=== PATIENT | female | born 1945 | race Caucasian/White ===

== ENCOUNTER → 2018-08-25 | Emergency (ER) | payer MEDICARE ==
[~2018-08-25] VITALS: Ht 162.6 cm; Wt 58.1 kg
[~2018-08-25] MED LIST: ADULT LOW DOSE81 MG; ASACOL400 MG PO; BENAZEPRIL HCT PO; CEFDINIR300 MG PO; DOXYCYCLINE MO100 MG PO; FLORASTOR250 MG PO; IOPAMIDOL 370 MG/ML 200 ML INFUS..BTL INJ ONE; MACROBID 100 M100 MG PO; MORPHINE SULFATE 2 MG/ML SYR 1ML IV STA; MORPHINE SULFATE INJ 4 MG/ML INJ 1ML ONE; MULTI-VITAMIN1 EACH PO; ONDANSETRON HCL INJ 2MG/ML 2ML 2 MG/ML VIAL IV STA; ONDANSETRON HCL INJ 2MG/ML 2ML 2 MG/ML VIAL ONE; PRAVASTATIN SOD20 MG PO; PREDNISONE10 MG PO; SIMVASTATIN20 MG PO; SODIUM CHLORIDE 0.9% 100 ML 100 ML ONE; SODIUM CHLORIDE 0.9% 1000ML 1,000 ML IV STA; Z POTASSIUM CHLOR PO; Z.0.AMIODARONE HCL20 PO; Z.0.ASACOL400 MG PO; Z.0.ASPIRIN325 MG PO; Z.0.AVAPRO300 MG PO; Z.0.BYSTOLIC10 MG PO; Z.0.CRESTOR10 MG PO; Z.0.DICYCLOMINE HCL1 PO; Z.0.HYDROCHLOROTHIA2 PO; Z.0.LEVOTHYROXINE25 PO; Z.0.METOPROLOL TART5 PO; Z.0.NORVASC5 MG PO; Z.0.PLAVIX75 MG PO; Z.0.SIMVASTATIN10 MG PO
--- NOTE | 2018-08-25 20:23 | Diagnostic Imaging Report ---
Examination: Single AP view of the chest. COMPARISON: None. INDICATION: Chest pain DISCUSSION: Lines/tubes: None. Lungs: The lungs are well inflated and clear. No pneumonia or pulmonary edema. Pleura: There is no pleural effusion or pneumothorax. Heart and mediastinum: The heart and the mediastinum are unremarkable. Bones and soft tissues: No acute bony abnormalities. IMPRESSION: 1. No acute cardiopulmonary abnormalities. Signed by: Dr. Koko Solares M.D. on 08/25/2018 8:19 PM
[2018-08-25 20:44] LABS: BILIRUBIN,URINE NEGATIVE (NEGATIVE); CLARITY,URINE CLEAR (CLEAR); COLOR,URINE YELLOW (YELLOW); KETONES,URINE NEGATIVE (NEGATIVE); LEUKOCYTE ESTERASE ,URINE TRACE (NEGATIVE); NITRITE,URINE NEGATIVE (NEGATIVE); PROTEIN,URINE DIPSTICK NEGATIVE (NEGATIVE); URINE UROBILINOGEN 0.2 mg/dL (0.2 - 1)
[2018-08-25 20:49] LABS: BASOPHILS # (AUTO) 0.1 (0.0-0.1); BASOPHILS % 0.5 % (0.0-1.0); EOSINOPHILS # (AUTO) 0.2 (0.0-0.4); HEMATOCRIT 37.7 % (34.2-44.1); HEMOGLOBIN 12.7 g/dL (12.0-16.0); LYMPHOCYTES % 10.9 % (18.0-39.1); MEAN CORPUSCULAR HEMOGLOBIN 31.4 pg (28-32); MEAN CORPUSCULAR HGB CONC 33.7 g/dL (31-35); MEAN CORPUSCULAR VOLUME 93.1 fL (81-99); MONOCYTES # (AUTO) 0.5 (0.2-0.8); MONOCYTES % 5.1 % (4.4-11.3); NEUTROPHILS # (AUTO) 7.6 (2.1-6.9); NEUTROPHILS % 81.1 % (38.7-80.0); PLATELET COUNT 238 x10e3/uL (140-360); RED BLOOD COUNT 4.05 x10e6/uL (3.6-5.1); RED CELL DISTRIBUTION WIDTH 13.1 % (11.7-14.4)
[2018-08-25 21:11] LABS: ALANINE AMINOTRANSFERASE 16 IU/L (0-55); ALBUMIN 3.9 g/dL (3.5-5.0); ALBUMIN/GLOBULIN RATIO 1.3 (0.8-2.0); ALKALINE PHOSPHATASE 72 IU/L (40-150); AMYLASE 88 U/L (25-125); ANION GAP 17.4 mmol/L (8-16); BLOOD UREA NITROGEN 20 mg/dL (7-26); BUN/CREATININE RATIO 19 (6-25); CALCIUM 10.2 mg/dL (8.4-10.2); CARBON DIOXIDE 24 mmol/L (22-29); CHLORIDE 111 mmol/L (98-107); CREATINE KINASE 304 IU/L (29-168); CREATININE, SERUM 1.04 mg/dL (0.57-1.11); EST GLOMERULAR FILTRATION RATE 52 ML/MIN (60-); GLUCOSE 111 mg/dL (74-118); LIPASE 63 U/L (8-78); POTASSIUM 4.4 mmol/L (3.5-5.1); SODIUM 148 mmol/L (136-145)
[2018-08-25 21:12] LABS: BACTERIA,URINE RARE /HPF; EPITHELIAL CELLS,URINE RARE /LPF; RBC,URINE 0-5 /HPF (0-5)
--- NOTE | 2018-08-25 23:08 | Diagnostic Imaging Report ---
EXAMINATION: CT angiogram of the chest, abdomen and pelvis with contrast. TECHNIQUE: Helical CT angiogram images of the chest, abdomen and pelvis were performed from the lung apices to the lesser trochanters after the intravenous administration of 150 cc of Isovue 300 and the oral administration of none. Coronal and sagittal reformatted images were obtained. COMPARISON: None. CLINICAL HISTORY:Upper back pain DISCUSSION: CHEST: LINES/TUBES: None. LUNGS AND AIRWAYS: Emphysematous change. Scarring in the lung bases PLEURA: The pleural spaces are clear. HEART AND MEDIASTINUM: The thyroid gland is normal. Aortic and coronary artery calcifications. No dissection or aneurysm. LYMPH NODES: No significant mediastinal, hilar or axillary lymphadenopathy is seen. BONES AND SOFT TISSUES: No bony destructive lesions. No soft tissue abnormalities. ABDOMEN/PELVIS: HEPATOBILIARY:No focal hepatic lesions. No biliary ductal dilation. The gallbladder is normal. SPLEEN: No splenomegaly. PANCREAS: No focal mass. Calcifications related to chronic pancreatitis. Pancreatic duct is prominent. ADRENALS: No adrenal nodules. KIDNEYS/URETERS: Bilateral renal cysts, largest right measuring 2.6 cm. PELVIC ORGANS/BLADDER: Bladder is normal. Hysterectomy. PERITONEUM/RETROPERITONEUM: No free air or fluid. LYMPH NODES: No intra-abdominal,retroperitoneal, pelvic or inguinal lymphadenopathy. VESSELS: Vascular calcifications. No dissection or aneurysm. GI TRACT: Post surgical change to the small bowel. No obstruction. Extensive sigmoid diverticulosis BONES AND SOFT TISSUES: No bony destructive lesions. No soft tissue abnormalities. IMPRESSION: Aortic and coronary artery calcifications. No aneurysm or dissection. Colonic diverticulosis. Signed by: Dr. Koko Solares M.D. on 08/25/2018 11:04 PM
[2018-08-25 23:33] VITALS: BP 139/75
== END | disposition home or self-care (01) ==
LOC: ER 19:37
DX: R10.10 Upper abdominal pain, unspecified (principal); N30.90 Cystitis, unspecified without hematuria; K57.30 Diverticulosis of large intestine without perforation or abscess without bleeding
CPT/HCPCS: 36415; 71045; 71275; 74174; 80053; 81001; 82150; 82550; 82553; 83690; 84484; 85025; 93005; 96374; 99284; J2270 ×2; J2405; J7030

== ENCOUNTER 2018-09-03 14:31 | Emergency (ER) | payer MEDICARE ==
[~2018-09-03] VITALS: Ht 160 cm; Wt 55.3 kg
[~2018-09-03 14:31] MED LIST changes: -CEFDINIR300 MG PO; -DOXYCYCLINE MO100 MG PO; -IOPAMIDOL 370 MG/ML 200 ML INFUS..BTL INJ ONE; -MORPHINE SULFATE 2 MG/ML SYR 1ML IV STA; -MORPHINE SULFATE INJ 4 MG/ML INJ 1ML ONE; -MULTI-VITAMIN1 EACH PO; -ONDANSETRON HCL INJ 2MG/ML 2ML 2 MG/ML VIAL IV STA; -ONDANSETRON HCL INJ 2MG/ML 2ML 2 MG/ML VIAL ONE; -PREDNISONE10 MG PO; -SODIUM CHLORIDE 0.9% 100 ML 100 ML ONE; -SODIUM CHLORIDE 0.9% 1000ML 1,000 ML IV STA
--- OUTSIDE RECORDS SUMMARY | 2018-09-03 14:37 | XMS REPORT ---
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 Allergies, Adverse Reactions, Alerts This patient has no known allergies or adverse reactions. Medications This patient has no known medications. Results Test Description Test Time Test Comments Text Results Atomic Results Result Comments CTA ABD/PELVIS 2018-08-25 22:55:00 [place] [address] Patient Name: CHUN GUTIERREZ MR #: [id number] : 1945 Age/Sex: 72/F Req #: [id number] [facility] Physician: Ordered by: TRAVIS FARRELL MD Report #: [id number] Location: ER Room/Bed: Procedure: [id number] CT/CTA ABD/PELVIS Exam Date: 08/25/18 Exam Time: 2206 REPORT STATUS: Signed EXAMINATION: CT angiogram of the chest, abdomen and pelvis with contrast. TECHNIQUE: Helical CT angiogram images of the chest, abdomen and pelvis were performed from the lung apices to the lesser trochanters after the intravenous administration of 150 cc of Isovue 300 and the oral administration of none. Coronal and sagittal reformatted images were obtained. COMPARISON: None. CLINICAL HISTORY:Upper back pain DISCUSSION: CHEST: LINES/TUBES: None. LUNGS AND AIRWAYS: Emphysematous change. Scarring in the lung bases PLEURA: The pleural spaces are clear. HEART AND MEDIASTINUM: The thyroid gland is normal. Aortic and coronary artery calcifications. No dissection or aneurysm. LYMPH NODES: No significant mediastinal, hilar or axillary lymphadenopathy is seen. BONES AND SOFT TISSUES: No bony destructive lesions. No soft tissue abnormalities. ABDOMEN/PELVIS: HEPATOBILIARY:No focal hepatic lesions. No biliary ductal dilation. The gallbladder is normal. SPLEEN: No splenomegaly. PANCREAS: No focal mass. Calcifications related to chronic pancreatitis. Pancreatic duct is prominent. ADRENALS: No adrenal nodules. KIDNEYS/URETERS: Bilateral renal cysts, largest right measuring 2.6 cm. PELVIC ORGANS/BLADDER: Bladder is normal. Hysterectomy. PERITONEUM/RETROPERITONEUM: No free air or fluid. LYMPH NODES: No intra-abdominal,retroperitoneal, pelvic or inguinal lymphadenopathy. VESSELS: Vascular calcifications. No dissection or aneurysm. GI TRACT: Post surgical change to the small bowel. No obstruction. Extensive sigmoid diverticulosis BONES AND SOFT TISSUES: No bony destructive lesions. No soft tissue abnormalities. IMPRESSION: Aortic and coronary artery calcifications. No aneurysm or dissection. Colonic diverticulosis. Signed by: Dr. Vin Chowdhury M.D. on 08/25/2018 11:04 PM Dictated By: VIN CHOWDHURY MD 03 Transcribed By: ALEXY on 08/25/182303 COPY TO: TRAVIS FARRELL MD CTA CHEST 2018-08-25 22:55:00 [place] [address] Patient Name: CHUN GUTIERREZ MR #: [id number] : 1945 Age/Sex: 72/F Req #: [id number] Physician: Ordered by: TRAVIS FARRELL MD Report #: [id number] Location: ER Room/Bed: Procedure: [id number] CT/CTA CHEST Exam Date: 08/25/18 Exam Time: 2206 REPORT STATUS: Signed EXAMINATION: CT angiogram of the chest, abdomen and pelvis with contrast. TECHNIQUE: Helical CT angiogram images of the chest, abdomen and pelvis were performed from the lung apices to the lesser trochanters after the intravenous administration of 150 cc of Isovue 300 and the oral administration of none. Coronal and sagittal reformatted images were obtained. COMPARISON: None. CLINICAL HISTORY:Upper back pain DISCUSSION: CHEST: LINES/TUBES: None. LUNGS AND AIRWAYS: Emphysematous change. Scarring in the lung bases PLEURA: The pleural spaces are clear. HEART AND MEDIASTINUM: The thyroid gland is normal. Aortic and coronary artery calcifications. No dissection or aneurysm. LYMPH NODES: No significant mediastinal, hilar or axillary lymphadenopathy is seen. BONES AND SOFT TISSUES: No bony destructive lesions. No soft tissue abnormalities. ABDOMEN/PELVIS: HEPATOBILIARY:No focal hepatic lesions. No biliary ductal dilation. The gallbladder is normal. SPLEEN: No splenomegaly. PANCREAS: No focal mass. Calcifications related to chronic pancreatitis. Pancreatic duct is prominent. ADRENALS: No adrenal nodules. KIDNEYS/URETERS: Bilateral renal cysts, largest right measuring 2.6 cm. PELVIC ORGANS/BLADDER: Bladder is normal. Hysterectomy. PERITONEUM/RETROPERITONEUM: No free air or fluid. LYMPH NODES: No intra-abdominal,retroperitoneal, pelvic or inguinal lymphadenopathy. VESSELS: Vascular calcifications. No dissection or aneurysm. GI TRACT: Post surgical change to the small bowel. No obstruction. Extensive sigmoid div erticulosis BONES AND SOFT TISSUES: No bony destructive lesions. No soft tissue abnormalities. IMPRESSION: Aortic and coronary artery calcifications. No aneurysm or dissection. Colonic diverticulosis. Signed by: Dr. Vin Chowdhury M.D. on 08/25/2018 11:04 PM Dictated By: VIN CHOWDHURY MD 03 Transcribed By: ALEXY on 08/25/182303 COPY TO: TRAVIS FARRELL MD CHEST SINGLE (PORTABLE) 2018-08-25 20:18:00 [place] [address] Patient Name: CHUN GUTIERREZ MR #: [id number] : 1945 Age/Sex: 72/F Req #: [id number] [facility] Physician: Ordered by: TRAVIS FARRELL MD Report #: [id number] Location: ER Room/Bed: Procedure: [id number] DX/CHEST SINGLE (PORTABLE) Exam Date: 08/25/18 Exam Time: 2009 REPORT STATUS: Signed Examination: Single AP view of the chest. C OMPARISON: None. INDICATION: Chest pain DISCUSSION: Lines/tubes: None. Lungs: The lungs are well inflated and clear. No pneumonia or pulmonary edema. Pleura: There is no pleural effusion or pneumothorax. Heart and mediastinum: The heart and the mediastinum are unremarkable. Bones and soft tissues: No acute bony abnormalities. IMPRESSION: 1. No acute cardiopulmonary abnormalities. Signed by: Dr. Vin Chowdhury M.D. on 08/25/2018 8:19 PM Dictated By: VIN CHOWDHURY MD 18 Transcribed By: ALEXY on 08/25/182018 COPY TO: TRAVIS FARRELL MD
[2018-09-03] MEDS ORDERED: KETOROLAC TROMETHAMINE 30 MG/ML VIAL IV STA (15:03)
[2018-09-03] MEDS ORDERED: ONDANSETRON HCL INJ 2MG/ML 2ML 2 MG/ML VIAL IV STA (15:03)
[2018-09-03] MEDS ORDERED: SODIUM CHLORIDE 0.9% 1000ML 1,000 ML IV SCH (15:15)
[2018-09-03] MEDS ORDERED: SODIUM CHLORIDE 0.9% 50ML 50 ML ONE (15:20)
[2018-09-03] MEDS ORDERED: IOPAMIDOL 370 MG/ML 200 ML INFUS..BTL INJ ONE (15:21)
[2018-09-03] MEDS ORDERED: KETOROLAC TROMETHAMINE 30 MG/ML VIAL ONE (16:19)
[2018-09-03] MEDS ORDERED: ONDANSETRON HCL INJ 2MG/ML 2ML 2 MG/ML VIAL ONE (16:19)
[2018-09-03] MEDS ORDERED: SODIUM CHLORIDE 0.9% 1000ML 1,000 ML ONE (16:19)
--- NOTE | 2018-09-03 16:23 | Diagnostic Imaging Report ---
EXAM: CT Abdomen and Pelvis WITH intravenous contrast INDICATION: Nausea, vomiting, fever COMPARISON: CT chest abdomen and pelvis of 08/25/2018 TECHNIQUE: Abdomen and pelvis were scanned utilizing a multidetector helical scanner from the lung base to the pubic symphysis after administration of IV contrast. Coronal and sagittal reformations were obtained. Routine protocol was performed. Scan was performed when during portal venous phase. IV CONTRAST: 100 mL of Isovue-370 ORAL CONTRAST: Water COMPLICATIONS: None RADIATION DOSE: Total DLP: 423.17 mGy*cm Dose modulation, iterative reconstruction, and/or weight based adjustment of the mA/kV was utilized to reduce the radiation dose to as low as reasonably achievable. FINDINGS: LOWER THORAX: Minimal bibasilar dependent segmental atelectasis. No focal consolidation. Atherosclerotic calcifications of the coronary arteries. HEPATOBILIARY: No focal hepatic lesions. No biliary ductal dilatation. The gallbladder appears unremarkable. SPLEEN: No splenomegaly. PANCREAS: No focal masses or ductal dilatation. ADRENALS: No adrenal nodules. KIDNEYS/URETERS: No hydronephrosis, stones, or solid mass lesions. Bilateral renal cysts, measuring up to 2.7 cm on the right and 1.6 cm on the left. PELVIC ORGANS/BLADDER: Bladder is decompressed. There is a 6.8 x 3.7 cm predominantly cystic left adnexal mass. PERITONEUM / RETROPERITONEUM: No free air or fluid. LYMPH NODES: No lymphadenopathy. VESSELS: Atherosclerotic calcifications of the abdominal aorta and major branches. GI TRACT: Extensive colonic diverticulosis without CT evidence of diverticulitis. No abnormal bowel wall thickening or bowel distention. No evidence of obstruction. Prior enteric anastomosis in the right lower quadrant. Appendix appears unremarkable. BONES AND SOFT TISSUES: Degenerative changes of the visualized spine. No suspicious lytic or blastic lesions. IMPRESSION: Extensive colonic diverticulosis with no CT evidence of diverticulitis. Predominantly cystic 6.8 x 3.7 cm left adnexal lesion. Recommend further evaluation with ultrasound on a nonemergent basis. Signed by: Rinku Ashley MD on 09/03/2018 4:19 PM
[2018-09-03] MEDS ORDERED: MORPHINE SULFATE INJ 4 MG/ML INJ 1ML IV PRN (16:30)
[2018-09-03] MEDS ORDERED: ACETAMINOPHEN 325 MG TAB PO ONE (16:30)
[2018-09-03] MEDS ORDERED: MORPHINE SULFATE INJ 4 MG/ML INJ 1ML ONE (16:37)
[2018-09-03] MEDS ORDERED: ACETAMINOPHEN 325 MG TAB ONE (16:38)
[2018-09-03 18:20] VITALS: BP 147/62
== END 2018-09-03 18:31 | disposition home or self-care (01) ==
LOC: FSED 14:31
DX: R10.11 Right upper quadrant pain (principal); R10.12 Left upper quadrant pain; R10.13 Epigastric pain; R11.2 Nausea with vomiting, unspecified; I10 Essential (primary) hypertension; Z87.19 Personal history of other diseases of the digestive system
CPT/HCPCS: 74177; 80048; 80076; 81003; 84484; 85025; 93005; 99284; J1885; J2270; J2405; J7030; Q9967

== ENCOUNTER 2018-09-10 07:13 | Observation (INO) | payer MEDICARE ==
[~2018-09-10] VITALS: Ht 160 cm; Wt 55.8 kg
[2018-09-10] MEDS ORDERED: SODIUM CHLORIDE 0.9% 1000ML 1,000 ML IV STA (07:27)
[2018-09-10] MEDS ORDERED: METHYLPREDNISOLONE SOD SUCC 125 MG/2ML VIAL IV ONE (07:30)
[2018-09-10] MEDS ORDERED: ACETAMINOPHEN 325 MG TAB PO NR (07:30)
[2018-09-10] MEDS ORDERED: FAMOTIDINE 20 MG/2 ML VIAL IV NR (07:30)
[2018-09-10] MEDS ORDERED: PROMETHAZINE 12.5MG/ NACL 0.9% 12.5 MG/50 ML BAG IV ONE (07:30)
[2018-09-10] MEDS ORDERED: KETOROLAC TROMETHAMINE 30 MG/ML VIAL IV NR (07:30)
[2018-09-10 08:04] LABS: BILIRUBIN,URINE MODERATE (NEGATIVE); CLARITY,URINE CLOUDY (CLEAR); COLOR,URINE ORANGE (YELLOW); KETONES,URINE 1+ (NEGATIVE); LEUKOCYTE ESTERASE ,URINE TRACE (NEGATIVE); NITRITE,URINE NEGATIVE (NEGATIVE); PROTEIN,URINE DIPSTICK 1+ (NEGATIVE); URINE UROBILINOGEN 1 mg/dL (0.2 - 1)
[2018-09-10 08:19] LABS: BACTERIA,URINE MANY /HPF; EPITHELIAL CELLS,URINE MANY /LPF; RBC,URINE 0-5 /HPF (0-5)
[2018-09-10 08:20] LABS: AMORPHOUS SEDIMENT,URINE MANY (FEW)
[2018-09-10] MEDS ORDERED: LACTATED RINGER'S 1,000 ML IV SCH (08:56)
--- NOTE | 2018-09-10 08:56 | Diagnostic Imaging Report ---
EXAMINATION: ABDOMEN ACUTE SERIES W/PA CXR INDICATION: Abdominal pain COMPARISON: None FINDINGS: TUBES and LINES: None. LUNGS: The lungs appear hyperinflated. Bilateral upper lobe predominant emphysematous changes. Mild subsegmental atelectasis at both lung bases. No focal consolidation or pulmonary edema. PLEURA: No pleural effusion or pneumothorax. HEART AND MEDIASTINUM: The cardiomediastinal silhouette is normal in size and contour. Atherosclerotic calcifications of the thoracic aorta. BONES AND SOFT TISSUES: No acute fracture or dislocation. ABDOMEN and: Nonobstructive bowel gas pattern. No abnormal calcifications. No intraperitoneal free air. Degenerative changes involve the lower lumbar spine. Phleboliths in the pelvis. IMPRESSION: Nonobstructive bowel gas pattern. No free air. Hyperinflated lungs with bilateral upper lobe predominant emphysema. No focal pneumonia or pulmonary edema. Signed by: Rinku Ashley MD on 09/10/2018 8:52 AM
[2018-09-10] MEDS ORDERED: CEFTRIAXONE SOD 1 GM VIAL IV SCH (09:00)
[2018-09-10] MEDS ORDERED: ENALAPRILAT IV INJ 1.25 MG/ML VIAL IV PRN (09:00)
[2018-09-10] MEDS ORDERED: DIPHENHYDRAMINE HCL INJ 50 MG/ML VIAL IV PRN (09:00)
[2018-09-10] MEDS ORDERED: FAMOTIDINE 20 MG/2 ML VIAL IV SCH (09:00)
[2018-09-10] MEDS ORDERED: ACETAMINOPHEN 325 MG TAB PO PRN (09:00)
[2018-09-10 09:10] LABS: BASOPHILS # (AUTO) 0.1 (0.0-0.1); BASOPHILS % 0.5 % (0.0-1.0); EOSINOPHILS # (AUTO) 0.1 (0.0-0.4); EOSINOPHILS % 0.5 % (0.0-6.0); HEMATOCRIT 35.2 % (34.2-44.1); HEMOGLOBIN 11.4 g/dL (12.0-16.0); LYMPHOCYTES % 8.4 % (18.0-39.1); MEAN CORPUSCULAR HEMOGLOBIN 30.4 pg (28-32); MEAN CORPUSCULAR HGB CONC 32.4 g/dL (31-35); MEAN CORPUSCULAR VOLUME 93.9 fL (81-99); MONOCYTES # (AUTO) 1.1 (0.2-0.8); MONOCYTES % 9.6 % (4.4-11.3); NEUTROPHILS # (AUTO) 9.4 (2.1-6.9); NEUTROPHILS % 79.4 % (38.7-80.0); PLATELET COUNT 252 x10e3/uL (140-360); RED BLOOD COUNT 3.75 x10e6/uL (3.6-5.1); RED CELL DISTRIBUTION WIDTH 14.4 % (11.7-14.4)
[2018-09-10 09:15] LABS: ALANINE AMINOTRANSFERASE 26 IU/L (0-55); ALBUMIN 2.7 g/dL (3.5-5.0); ALBUMIN/GLOBULIN RATIO 0.6 (0.8-2.0); ALKALINE PHOSPHATASE 253 IU/L (40-150); AMYLASE 27 U/L (25-125); ANION GAP 19.1 mmol/L (8-16); BLOOD UREA NITROGEN 15 mg/dL (7-26); BUN/CREATININE RATIO 17 (6-25); CALCIUM 9.4 mg/dL (8.4-10.2); CARBON DIOXIDE 20 mmol/L (22-29); CHLORIDE 103 mmol/L (98-107); CREATINE KINASE 155 IU/L (29-168); EST GLOMERULAR FILTRATION RATE > 60 ML/MIN (60-); GLUCOSE 84 mg/dL (74-118); LIPASE 40 U/L (8-78); POTASSIUM 4.1 mmol/L (3.5-5.1); SODIUM 138 mmol/L (136-145)
[2018-09-10] MEDS: CEFTRIAXONE SOD 1 GM/NS 50 ML 50 ML IV SCH ×2 (09:31→20:40)
[2018-09-10] MEDS: LACTATED RINGER'S 1,000 ML IV SCH ×2 (09:31→16:55)
[2018-09-10 11:22] VITALS: BP 115/59
[2018-09-10] MEDS: ONDANSETRON HCL INJ 2MG/ML 2ML 2 MG/ML VIAL IV PRN (11:44)
[2018-09-10] MEDS: MORPHINE SULFATE INJ 4 MG/ML INJ 1ML IV PRN ×2 (11:44→20:54)
[2018-09-10 12:06] VITALS: BP 115/59
[2018-09-10 12:19] VITALS: BP 115/59
[2018-09-10] MEDS ORDERED: MULTI-VITAMIN1 EACH PO (12:32)
--- NOTE | 2018-09-10 14:05 | NUR ---
Visit made by the Spiritual Care Department Pastoral Visitor, Karen Casas. PV provided pastoral presence, prayer, hospitality, and supportive listening. Pastoral Visitor informed pt/family of the scope of Local [employer] Legislator Services and availability. [place] [employer] Spiritual Care Department O: [phone] Pager: [phone] ([phone] number calling from)
[2018-09-10 15:35] VITALS: BP 106/59
--- NOTE | 2018-09-10 16:25 | Diagnostic Imaging Report ---
Exam: Pelvic ultrasound. History: Left ovarian cyst Comparison: CT abdomen pelvis of 09/03/2018 Findings: Transabdominal sonographic evaluation of the pelvis. Status post hysterectomy. The right ovary was not well visualized. The left ovary measured 3.0 x 2.8 x 2.3 cm. There is a 3.2 x 2.3 x 2.3 cm anechoic cyst associated with the left ovary without associated vascularity. Impression: 3.2 x 2.3 x 2.3 cm anechoic cyst associated with the left ovary. Cyst appears smaller compared to a CT of 08/25/2018 and is just almost certainly benign. Follow-up evaluation with ultrasound in one to 2 years is recommended to document stability. Signed by: Rinku Ashley MD on 09/10/2018 4:21 PM
[2018-09-10] MEDS: DOXYCYCLINE 100MG/NS 100ML 100 ML IV SCH (16:54)
[2018-09-10] MEDS: METHYLPREDNISOLONE SOD SUCC 125 MG/2ML VIAL IV SCH ×2 (16:55→22:47)
[2018-09-10] MEDS: FAMOTIDINE 20 MG TAB PO SCH (16:55)
[2018-09-10 19:20] VITALS: BP 104/56
[2018-09-10] MEDS ORDERED: ZOLPIDEM TARTRATE 5 MG TAB PO PRN (21:00)
[2018-09-10 23:40] VITALS: BP 104/56
[2018-09-11] VITALS (8 sets, daily range): BP systolic 126–150; BP diastolic 66–78
[2018-09-11] MEDS: LACTATED RINGER'S 1,000 ML IV SCH (01:55)
[2018-09-11] MEDS: DOXYCYCLINE 100MG/NS 100ML 100 ML IV SCH ×2 (03:51→15:57)
[2018-09-11] MEDS: METHYLPREDNISOLONE SOD SUCC 125 MG/2ML VIAL IV SCH ×3 (05:39→21:05)
[2018-09-11 05:54] LABS: BASOPHILS % 0.2 % (0.0-1.0); HEMATOCRIT 33.9 % (34.2-44.1); HEMOGLOBIN 11.2 g/dL (12.0-16.0); LYMPHOCYTES % 9.3 % (18.0-39.1); MEAN CORPUSCULAR HEMOGLOBIN 30.7 pg (28-32); MEAN CORPUSCULAR VOLUME 92.9 fL (81-99); MONOCYTES # (AUTO) 0.5 (0.2-0.8); MONOCYTES % 4.6 % (4.4-11.3); NEUTROPHILS % 83.2 % (38.7-80.0); PLATELET COUNT 328 x10e3/uL (140-360); RED BLOOD COUNT 3.65 x10e6/uL (3.6-5.1); RED CELL DISTRIBUTION WIDTH 14.5 % (11.7-14.4)
[2018-09-11 06:15] LABS: ANION GAP 15.6 mmol/L (8-16); BLOOD UREA NITROGEN 21 mg/dL (7-26); BUN/CREATININE RATIO 25 (6-25); CALCIUM 9.3 mg/dL (8.4-10.2); CARBON DIOXIDE 20 mmol/L (22-29); CHLORIDE 110 mmol/L (98-107); CREATININE, SERUM 0.85 mg/dL (0.57-1.11); EST GLOMERULAR FILTRATION RATE > 60 ML/MIN (60-); GLUCOSE 141 mg/dL (74-118); MAGNESIUM 1.7 MG/DL (1.3-2.1); PHOSPHORUS 2.8 MG/DL (2.3-4.7); POTASSIUM 4.6 mmol/L (3.5-5.1); SODIUM 141 mmol/L (136-145)
[2018-09-11 08:14] LABS: LYMPHOCYTES % (MANUAL) 8 % (19-48); MONOCYTES % (MANUAL) 4 % (3.4-9.0); NEUTROPHILS % (MANUAL) 86 % (40-74); PROMYELOCYTES % (MANUAL) 2 % (0-0)
[2018-09-11 08:15] LABS: HYPOCHROMASIA SLIGHT; PLATELET ESTIMATE ADEQUATE; PLATELET MORPHOLOGY COMMENT NORMAL
[2018-09-11] MEDS: CEFTRIAXONE SOD 1 GM/NS 50 ML 50 ML IV SCH ×2 (09:22→21:05)
[2018-09-11] MEDS: FAMOTIDINE 20 MG TAB PO SCH ×2 (09:22→17:26)
[2018-09-11] MEDS: ONDANSETRON HCL INJ 2MG/ML 2ML 2 MG/ML VIAL IV PRN (14:21)
[2018-09-11] MEDS: MORPHINE SULFATE INJ 4 MG/ML INJ 1ML IV PRN (14:21)
[2018-09-11] MEDS: ALBUTEROL/IPRATROPIUM 3 ML NEB NEB SCH (19:00)
--- NOTE | 2018-09-11 19:08 | NUR ---
Report received and bedside report walking rounds complete. Pt resting in bed and in no apparent distress. All safety measures ensured and pt call vuong near. Pt encouraged to use call vuong for assistance.
[2018-09-12] MEDS: ALBUTEROL/IPRATROPIUM 3 ML NEB NEB SCH ×2 (00:20→07:00)
[2018-09-12 00:22] VITALS: BP 137/72
[2018-09-12] MEDS: MORPHINE SULFATE INJ 4 MG/ML INJ 1ML IV PRN (01:46)
[2018-09-12] MEDS: ONDANSETRON HCL INJ 2MG/ML 2ML 2 MG/ML VIAL IV PRN (01:46)
[2018-09-12] MEDS: DOXYCYCLINE 100MG/NS 100ML 100 ML IV SCH (04:33)
[2018-09-12 05:00] VITALS: BP 153/83
[2018-09-12] MEDS: METHYLPREDNISOLONE SOD SUCC 125 MG/2ML VIAL IV SCH (05:16)
[2018-09-12] MEDS ORDERED: PREDNISONE10 MG PO (05:34)
[2018-09-12] MEDS ORDERED: CEFDINIR300 MG PO (05:34)
[2018-09-12] MEDS ORDERED: DOXYCYCLINE MO100 MG PO (05:34)
[2018-09-12 05:52] LABS: BASOPHILS % 0.1 % (0.0-1.0); HEMATOCRIT 30.3 % (34.2-44.1); HEMOGLOBIN 9.9 g/dL (12.0-16.0); LYMPHOCYTES # (AUTO) 0.9 (1.0-3.2); LYMPHOCYTES % 7.5 % (18.0-39.1); MEAN CORPUSCULAR HEMOGLOBIN 30.7 pg (28-32); MEAN CORPUSCULAR HGB CONC 32.7 g/dL (31-35); MEAN CORPUSCULAR VOLUME 94.1 fL (81-99); MONOCYTES # (AUTO) 0.6 (0.2-0.8); MONOCYTES % 5.1 % (4.4-11.3); NEUTROPHILS # (AUTO) 10.4 (2.1-6.9); NEUTROPHILS % 85.4 % (38.7-80.0); PLATELET COUNT 373 x10e3/uL (140-360); RED BLOOD COUNT 3.22 x10e6/uL (3.6-5.1); RED CELL DISTRIBUTION WIDTH 14.5 % (11.7-14.4)
[2018-09-12 06:09] LABS: ANION GAP 13.1 mmol/L (8-16); BLOOD UREA NITROGEN 22 mg/dL (7-26); BUN/CREATININE RATIO 32 (6-25); CALCIUM 8.5 mg/dL (8.4-10.2); CARBON DIOXIDE 21 mmol/L (22-29); CHLORIDE 113 mmol/L (98-107); CREATININE, SERUM 0.69 mg/dL (0.57-1.11); EST GLOMERULAR FILTRATION RATE > 60 ML/MIN (60-); GLUCOSE 134 mg/dL (74-118); POTASSIUM 4.1 mmol/L (3.5-5.1); SODIUM 143 mmol/L (136-145)
--- NOTE | 2018-09-12 07:00 | NUR ---
BEDSIDE SHIFT REPORT RECEIVED FROM THE GLUE MAKER BONE RN. PT DENIES NEEDS AT THIS TIME.
[2018-09-12] MEDS: FAMOTIDINE 20 MG TAB PO SCH (07:47)
[2018-09-12 08:00] VITALS: BP 171/89
[2018-09-12] MEDS: CEFTRIAXONE SOD 1 GM/NS 50 ML 50 ML IV SCH (08:00)
[2018-09-12 08:53] VITALS: BP 171/89
[2018-09-12 09:00] VITALS: BP 142/67
--- NOTE | 2018-09-12 09:30 | NUR ---
PATIENT DISCHARGED SAFELY HOME WITH FAMILY.PT ESCORTED TO THE FRONT ENTRANCE. IV REMOVED. TIP INTACT. NO BLEEDING NOTED. DRESSING APPLIED. PT DENIED FURTHER NEEDS.
--- NOTE | 2018-09-13 00:28 | Discharge Summary ---
ADMISSION DIAGNOSES: Generalized pain and weakness, post infectious inflammatory polyarthropathy, chronic obstructive pulmonary disease without exacerbation, hypertension, ulcerative colitis, urinary tract infection. DISCHARGE DIAGNOSES: Generalized pain and weakness, post infectious inflammatory polyarthropathy, chronic obstructive pulmonary disease without exacerbation, hypertension, ulcerative colitis, urinary tract infection, left ovarian cyst. HISTORY: The patient has a history of hypertension, ulcerative colitis. SURGICAL HISTORY: Back surgery, foot surgery, hysterectomy, and hernia. FAMILY HISTORY: Noncontributory. SOCIAL HISTORY: The patient has a history of alcoholism. HOSPITAL COURSE: A 73-year-old female, complains of 2 weeks of generalized myalgia and abdominal pain. She can barely walk. She hurts all over, particularly in the joint, but the pain starts on her scalp and moves down. On admission, the patient was started on Rocephin, IV Solu-Medrol, and doxycycline. Ultrasound of the pelvis showed a left ovarian cyst. The patient was advised to follow up for repeat ultrasound in 1 to 2 years. An abdomen x-ray with chest x-ray showed nonobstructive bowel gas pattern, hyperinflated lungs with bilateral upper lobe predominant emphysema. ESR was 92. After 1 day of IV antibiotics and steroids, the patient began feeling better. She will discharge home with Omnicef, prednisone tapered, and doxycycline. The patient understands discharge instructions and agrees to plan. Vital signs stable, the patient afebrile. Dictated by Argentina Sifuentes NP MD ARNOLDO Ribeiro/MODL /[id number]
== END 2018-09-12 09:35 | disposition home or self-care (01) ==
LOC: ER 07:13 → ERHOLD 08:56 → IMCU 10:06
PROVIDERS: ADMIT Internal Medicine; ATTEND Internal Medicine
DX: N39.0 Urinary tract infection, site not specified (principal); M06.4 Inflammatory polyarthropathy; I10 Essential (primary) hypertension; J44.9 Chronic obstructive pulmonary disease, unspecified; N83.202 Unspecified ovarian cyst, left side; K51.919 Ulcerative colitis, unspecified with unspecified complications; E86.0 Dehydration
CPT/HCPCS: 36415 ×3; 74022; 76856; 80048 ×2; 80053; 81001; 82150; 82550; 82553; 83690; 83735; 84100; 84484; 85025 ×3; 85651; 87086; 93005; 94640 ×3; 97161; 99284; G0378 ×3; J0696 ×3; J1885; J2270 ×3; J2405 ×3; J2550; J2930 ×3; J7030; J7121 ×2

== ENCOUNTER 2018-10-19 17:33 | Emergency (ER) | payer MEDICARE ==
[~2018-10-19] VITALS: Ht 160 cm; Wt 55.8 kg
[~2018-10-19 17:33] MED LIST changes: +CEFDINIR300 MG PO; +DOXYCYCLINE MO100 MG PO; +MULTI-VITAMIN1 EACH PO; +PREDNISONE10 MG PO
[2018-10-19 17:56] LABS: BILIRUBIN,URINE NEGATIVE (NEGATIVE); CLARITY,URINE CLEAR (CLEAR); COLOR,URINE YELLOW (YELLOW); KETONES,URINE NEGATIVE (NEGATIVE); LEUKOCYTE ESTERASE ,URINE NEGATIVE (NEGATIVE); NITRITE,URINE NEGATIVE (NEGATIVE); PROTEIN,URINE DIPSTICK NEGATIVE (NEGATIVE); URINE UROBILINOGEN 0.2 mg/dL (0.2 - 1)
--- NOTE | 2018-10-19 18:14 | NUR ---
MEDICAL CSR NOTIFIED TO CALL OUT FOR VENOUS DUPPLEX.
[2018-10-19 18:20] LABS: EPITHELIAL CELLS,URINE RARE /LPF
[2018-10-19 18:46] LABS: BASOPHILS # (AUTO) 0.1 (0.0-0.1); EOSINOPHILS # (AUTO) 0.3 (0.0-0.4); HEMATOCRIT 30.2 % (34.2-44.1); HEMOGLOBIN 9.9 g/dL (12.0-16.0); LYMPHOCYTES # (AUTO) 1.2 (1.0-3.2); MEAN CORPUSCULAR HEMOGLOBIN 30.1 pg (28-32); MEAN CORPUSCULAR HGB CONC 32.8 g/dL (31-35); MEAN CORPUSCULAR VOLUME 91.8 fL (81-99); MONOCYTES # (AUTO) 0.6 (0.2-0.8); MONOCYTES % 7.7 % (4.4-11.3); NEUTROPHILS # (AUTO) 5.5 (2.1-6.9); NEUTROPHILS % 71.6 % (38.7-80.0); PLATELET COUNT 492 x10e3/uL (140-360); RED BLOOD COUNT 3.29 x10e6/uL (3.6-5.1); RED CELL DISTRIBUTION WIDTH 12.9 % (11.7-14.4)
[2018-10-19] MEDS ORDERED: PRAVASTATIN SOD20 MG PO (18:54)
--- NOTE | 2018-10-19 19:05 | NUR ---
DEPUTY SHERIFF BAILIFF AT BEDSIDE FOR VENOUS DOPPLER.
[2018-10-19 19:06] LABS: ALANINE AMINOTRANSFERASE 12 IU/L (0-55); ALBUMIN 3.1 g/dL (3.5-5.0); ALBUMIN/GLOBULIN RATIO 0.8 (0.8-2.0); ALKALINE PHOSPHATASE 95 IU/L (40-150); ANION GAP 16.1 mmol/L (8-16); BLOOD UREA NITROGEN 12 mg/dL (7-26); BUN/CREATININE RATIO 15 (6-25); CALCIUM 10.1 mg/dL (8.4-10.2); CARBON DIOXIDE 24 mmol/L (22-29); CHLORIDE 104 mmol/L (98-107); CREATINE KINASE 80 IU/L (29-168); EST GLOMERULAR FILTRATION RATE > 60 ML/MIN (60-); GLUCOSE 95 mg/dL (74-118); POTASSIUM 4.1 mmol/L (3.5-5.1); SODIUM 140 mmol/L (136-145)
--- NOTE | 2018-10-19 19:06 | NUR ---
MS REPORT GIVEN TO HARLEY LUND [employer] AUTHORING SPECIALIST NURSE.
[2018-10-19 19:31] LABS: INR 1.04; PROTHROMBIN TIME 14.1 seconds (11.9-14.5)
[2018-10-19 19:32] LABS: PARTIAL THROMBOPLASTIN TIME 41.7 seconds (23.8-35.5)
== END 2018-10-19 19:54 | disposition home or self-care (01) ==
LOC: ER 17:33
DX: I10 Essential (primary) hypertension (principal); L03.116 Cellulitis of left lower limb
CPT/HCPCS: 36415; 80053; 81001; 82550; 82553; 84484; 85025; 85610; 85730; 93005; 93971; 99283

== ENCOUNTER 2022-07-01 06:48 | Inpatient (IN) | payer MEDICARE ==
[~2022-07-01] VITALS: Ht 160 cm; Wt 55.8 kg
[2022-07-01] MEDS ORDERED: SODIUM CHLORIDE 0.9% 1000ML 1,000 ML IV ONE (07:30)
[2022-07-01] MEDS ORDERED: ONDANSETRON HCL INJ 2MG/ML 2ML 2 MG/ML VIAL IV STA (07:34)
[2022-07-01 07:35] LABS: BASOPHILS # (AUTO) 0.1 (0.0-0.1); BASOPHILS % 0.5 % (0.0-1.0); EOSINOPHILS # (AUTO) 0.2 (0.0-0.4); EOSINOPHILS % 1.1 % (0.0-6.0); HEMATOCRIT 37.6 % (34.2-44.1); HEMOGLOBIN 12.4 g/dL (12.0-16.0); LYMPHOCYTES # (AUTO) 0.9 (1.0-3.2); LYMPHOCYTES % 6.6 % (18.0-39.1); MEAN CORPUSCULAR HEMOGLOBIN 30.3 pg (28-32); MEAN CORPUSCULAR VOLUME 91.9 fL (81-99); MONOCYTES # (AUTO) 0.4 (0.2-0.8); MONOCYTES % 2.7 % (4.4-11.3); NEUTROPHILS # (AUTO) 12.4 (2.1-6.9); NEUTROPHILS % 88.8 % (38.7-80.0); PLATELET COUNT 226 x10e3/uL (140-360); RED BLOOD COUNT 4.09 x10e6/uL (3.6-5.1); RED CELL DISTRIBUTION WIDTH 13.2 % (11.7-14.4)
[2022-07-01 07:44] LABS: CLARITY,URINE CLEAR (CLEAR); COLOR,URINE YELLOW (YELLOW); KETONES,URINE NEGATIVE (NEGATIVE); LEUKOCYTE ESTERASE ,URINE TRACE (NEGATIVE); NITRITE,URINE NEGATIVE (NEGATIVE); PROTEIN,URINE DIPSTICK 1+ (NEGATIVE); URINE UROBILINOGEN 0.2 mg/dL (0.2 - 1)
[2022-07-01] MEDS ORDERED: Morphine 4mg INJECTION 4 MG/ML INJ IV ONE (07:45)
[2022-07-01 07:48] LABS: ALBUMIN 3.9 g/dL (3.5-5.0); ALBUMIN/GLOBULIN RATIO 1.1 (0.8-2.0); ANION GAP 18.4 mmol/L (8-16); CALCIUM 9.7 mg/dL (8.4-10.2); CREATININE, SERUM 0.96 mg/dL (0.57-1.11); POTASSIUM 3.4 mmol/L (3.5-5.1)
[2022-07-01 08:09] LABS: BACTERIA,URINE FEW /HPF; EPITHELIAL CELLS,URINE FEW /LPF
[2022-07-01] MEDS ORDERED: IOPAMIDOL 370 MG/ML 100 ML INFUS..BTL INJ ONE (08:10)
[2022-07-01 10:20] LABS: INR 1.02; PROTHROMBIN TIME 13.9 seconds (11.9-14.5)
[2022-07-01] MEDS ORDERED: SODIUM CHLORIDE 0.9% 1000ML 1,000 ML ONE (10:25)
[2022-07-01] MEDS ORDERED: ONDANSETRON HCL INJ 2MG/ML 2ML 2 MG/ML VIAL ONE (10:25)
[2022-07-01] MEDS ORDERED: KETOROLAC TROMETHAMINE 30 MG/ML VIAL ONE (10:25)
[2022-07-01] MEDS: SODIUM CHLORIDE 0.9% 250ML IRRIG IR SCH ×4 (11:44→23:45)
[2022-07-01] MEDS: SODIUM CHLORIDE 0.9% 1000ML 1,000 ML IV SCH ×2 (11:44→19:49)
[2022-07-01] MEDS: ONDANSETRON HCL INJ 2MG/ML 2ML 2 MG/ML VIAL IV PRN ×2 (11:45→16:55)
[2022-07-01] MEDS: Morphine 4mg INJECTION 4 MG/ML INJ IV PRN ×2 (11:45→16:55)
[2022-07-01] MEDS ORDERED: BENZOCAINE/TETRACAINE/BUTAMBEN AERO SPRAY 56 GM CAN ONE (13:21)
[2022-07-01] MEDS ORDERED: FENTANYL CITRATE/PF 100MCG/2 ML INJ IV ONE (14:30)
[2022-07-01 17:40] VITALS: BP 167/74; PULSE 88; RESP 17; TEMP 98.3; O2SAT 97
[2022-07-01 18:58] VITALS: BP 167/74; PULSE 88; RESP 17; TEMP 98.3; O2SAT 97
[2022-07-01 19:30] VITALS: BP 174/90; PULSE 95; RESP 18; TEMP 98.3; O2SAT 98
[2022-07-01 19:33] VITALS: BP 167/74; PULSE 88; RESP 17; TEMP 98.3; O2SAT 97
[2022-07-01] MEDS: HYDROMORPHONE 1MG/1ML INJ IV PRN ×2 (19:55→23:45)
[2022-07-01 20:00] VITALS: BP 174/90; PULSE 95; RESP 18; TEMP 98.3; O2SAT 98
[2022-07-01] MEDS ORDERED: PRAVASTATIN SOD20 MG (23:40)
[2022-07-01] MEDS ORDERED: LEXAPRO10 MG PO (23:40)
[2022-07-01] MEDS ORDERED: OMEPRAZOLE20 MG (23:40)
[2022-07-02] VITALS (8 sets, daily range): BP systolic 147–166; BP diastolic 68–81; PULSE 87–116; RESP 14–20; TEMP 97–98.4; O2SAT 91–99
[2022-07-02] MEDS: ONDANSETRON HCL INJ 2MG/ML 2ML 2 MG/ML VIAL IV PRN ×5 (00:03→22:12)
[2022-07-02] MEDS: SODIUM CHLORIDE 0.9% 250ML IRRIG IR SCH ×2 (03:00→07:00)
[2022-07-02] MEDS: SODIUM CHLORIDE 0.9% 1000ML 1,000 ML IV SCH ×4 (05:00→23:40)
[2022-07-02] MEDS: HYDROMORPHONE 1MG/1ML INJ IV PRN ×5 (05:04→22:12)
[2022-07-02 05:45] LABS: BASOPHILS % 0.5 % (0.0-1.0); EOSINOPHILS # (AUTO) 0.1 (0.0-0.4); EOSINOPHILS % 0.8 % (0.0-6.0); HEMOGLOBIN 11.4 g/dL (12.0-16.0); LYMPHOCYTES # (AUTO) 0.5 (1.0-3.2); LYMPHOCYTES % 5.2 % (18.0-39.1); MEAN CORPUSCULAR HEMOGLOBIN 29.8 pg (28-32); MEAN CORPUSCULAR HGB CONC 32.6 g/dL (31-35); MEAN CORPUSCULAR VOLUME 91.4 fL (81-99); MONOCYTES # (AUTO) 0.5 (0.2-0.8); MONOCYTES % 5.7 % (4.4-11.3); NEUTROPHILS # (AUTO) 7.5 (2.1-6.9); NEUTROPHILS % 87.6 % (38.7-80.0); PLATELET COUNT 227 x10e3/uL (140-360); RED BLOOD COUNT 3.83 x10e6/uL (3.6-5.1); RED CELL DISTRIBUTION WIDTH 13.8 % (11.7-14.4)
[2022-07-02 05:50] LABS: INR 1.07; PROTHROMBIN TIME 14.4 seconds (11.9-14.5)
[2022-07-02 05:51] LABS: PARTIAL THROMBOPLASTIN TIME 21.8 seconds (23.8-35.5)
[2022-07-02] MEDS ORDERED: LORAZEPAM INJ 2 MG/ML VIAL IV PRN (06:00)
[2022-07-02 06:02] LABS: ALBUMIN 3.2 g/dL (3.5-5.0); ALBUMIN/GLOBULIN RATIO 0.9 (0.8-2.0); ANION GAP 14.5 mmol/L (8-16); CALCIUM 8.5 mg/dL (8.4-10.2); CREATININE, SERUM 0.8 mg/dL (0.57-1.11); POTASSIUM 3.5 mmol/L (3.5-5.1)
[2022-07-02] MEDS: HYDRALAZINE HCL 20 MG/ML VIAL IV PRN (06:35)
[2022-07-02] MEDS: BISACODYL 10 MG SUPP PR SCH (22:13)
[2022-07-03] VITALS (8 sets, daily range): BP systolic 129–178; BP diastolic 69–86; PULSE 80–95; RESP 16–20; TEMP 97.4–98.4; O2SAT 93–99
[2022-07-03] MEDS: ONDANSETRON HCL INJ 2MG/ML 2ML 2 MG/ML VIAL IV PRN ×4 (02:22→20:06)
[2022-07-03] MEDS: HYDROMORPHONE 1MG/1ML INJ IV PRN ×4 (02:24→20:09)
[2022-07-03 05:32] LABS: BASOPHILS # (AUTO) 0.1 (0.0-0.1); BASOPHILS % 0.5 % (0.0-1.0); EOSINOPHILS # (AUTO) 0.1 (0.0-0.4); EOSINOPHILS % 0.9 % (0.0-6.0); HEMATOCRIT 33.8 % (34.2-44.1); HEMOGLOBIN 10.8 g/dL (12.0-16.0); LYMPHOCYTES # (AUTO) 0.6 (1.0-3.2); LYMPHOCYTES % 6.6 % (18.0-39.1); MEAN CORPUSCULAR HEMOGLOBIN 29.8 pg (28-32); MEAN CORPUSCULAR VOLUME 93.4 fL (81-99); MONOCYTES # (AUTO) 0.6 (0.2-0.8); MONOCYTES % 6.7 % (4.4-11.3); NEUTROPHILS # (AUTO) 7.9 (2.1-6.9); NEUTROPHILS % 84.9 % (38.7-80.0); PLATELET COUNT 215 x10e3/uL (140-360); RED BLOOD COUNT 3.62 x10e6/uL (3.6-5.1); RED CELL DISTRIBUTION WIDTH 13.9 % (11.7-14.4)
[2022-07-03 06:11] LABS: ANION GAP 11.8 mmol/L (8-16); CALCIUM 8.5 mg/dL (8.4-10.2); CREATININE, SERUM 0.76 mg/dL (0.57-1.11)
[2022-07-03 06:31] LABS: POTASSIUM 2.8 mmol/L (3.5-5.1)
[2022-07-03] MEDS: POTASSIUM CHLORIDE 20MEQ/100ML 100 ML IV SCH ×2 (07:36→09:54)
[2022-07-03] MEDS: SODIUM CHLORIDE 0.9% 1000ML 1,000 ML IV SCH ×2 (09:54→23:50)
[2022-07-03] MEDS: BISACODYL 10 MG SUPP PR SCH (10:42)
[2022-07-03] MEDS ORDERED: IOPAMIDOL 370 MG/ML 100 ML INFUS..BTL INJ ONE (12:49)
[2022-07-04] VITALS (7 sets, daily range): BP systolic 144–176; BP diastolic 74–97; PULSE 62–101; RESP 18–22; TEMP 97.3–99; O2SAT 93–97
[2022-07-04] MEDS: ONDANSETRON HCL INJ 2MG/ML 2ML 2 MG/ML VIAL IV PRN (02:03)
[2022-07-04] MEDS: HYDROMORPHONE 1MG/1ML INJ IV PRN (02:03)
[2022-07-04 06:52] LABS: BASOPHILS # (AUTO) 0.1 (0.0-0.1); BASOPHILS % 0.6 % (0.0-1.0); EOSINOPHILS # (AUTO) 0.4 (0.0-0.4); EOSINOPHILS % 4.6 % (0.0-6.0); HEMATOCRIT 32.1 % (34.2-44.1); HEMOGLOBIN 10.6 g/dL (12.0-16.0); LYMPHOCYTES # (AUTO) 0.8 (1.0-3.2); LYMPHOCYTES % 9.2 % (18.0-39.1); MEAN CORPUSCULAR HEMOGLOBIN 29.6 pg (28-32); MEAN CORPUSCULAR VOLUME 89.7 fL (81-99); MONOCYTES # (AUTO) 0.7 (0.2-0.8); MONOCYTES % 8.1 % (4.4-11.3); NEUTROPHILS # (AUTO) 6.9 (2.1-6.9); NEUTROPHILS % 77.1 % (38.7-80.0); PLATELET COUNT 198 x10e3/uL (140-360); RED BLOOD COUNT 3.58 x10e6/uL (3.6-5.1); RED CELL DISTRIBUTION WIDTH 13.5 % (11.7-14.4)
[2022-07-04 07:33] LABS: ANION GAP 12.5 mmol/L (8-16); CALCIUM 8.6 mg/dL (8.4-10.2); CREATININE, SERUM 0.68 mg/dL (0.57-1.11); MAGNESIUM 1.4 MG/DL (1.3-2.1)
[2022-07-04 07:47] LABS: POTASSIUM 2.5 mmol/L (3.5-5.1)
[2022-07-04] MEDS: POTASSIUM CHLORIDE 20MEQ/100ML 100 ML IV SCH ×3 (09:14→13:00)
[2022-07-04] MEDS: SODIUM CHLORIDE 0.9% 1000ML 1,000 ML IV SCH (17:31)
[2022-07-04] MEDS ORDERED: MAGNESIUM HYDROXIDE 30 ML UDC PO ONE (19:20)
[2022-07-04] MEDS ORDERED: LOPERAMIDE HCL 2 MG CAP PO PRN (23:30)
[2022-07-05] VITALS (11 sets, daily range): BP systolic 131–167; BP diastolic 74–92; PULSE 70–117; RESP 17–22; TEMP 97.4–99.9; O2SAT 93–99
[2022-07-05] MEDS: HYDRALAZINE HCL 20 MG/ML VIAL IV PRN (01:11)
[2022-07-05] MEDS: SODIUM CHLORIDE 0.9% 1000ML 1,000 ML IV SCH ×2 (02:30→16:45)
[2022-07-05 06:29] LABS: BASOPHILS # (AUTO) 0.1 (0.0-0.1); BASOPHILS % 0.8 % (0.0-1.0); EOSINOPHILS # (AUTO) 0.6 (0.0-0.4); EOSINOPHILS % 7.8 % (0.0-6.0); HEMATOCRIT 31.3 % (34.2-44.1); HEMOGLOBIN 10.6 g/dL (12.0-16.0); LYMPHOCYTES # (AUTO) 0.7 (1.0-3.2); LYMPHOCYTES % 8.9 % (18.0-39.1); MEAN CORPUSCULAR HEMOGLOBIN 29.8 pg (28-32); MEAN CORPUSCULAR HGB CONC 33.9 g/dL (31-35); MEAN CORPUSCULAR VOLUME 87.9 fL (81-99); MONOCYTES # (AUTO) 0.8 (0.2-0.8); MONOCYTES % 9.8 % (4.4-11.3); NEUTROPHILS # (AUTO) 5.8 (2.1-6.9); NEUTROPHILS % 72.3 % (38.7-80.0); PLATELET COUNT 184 x10e3/uL (140-360); RED BLOOD COUNT 3.56 x10e6/uL (3.6-5.1); RED CELL DISTRIBUTION WIDTH 13.1 % (11.7-14.4)
[2022-07-05 06:55] LABS: ALBUMIN 2.6 g/dL (3.5-5.0); ALBUMIN/GLOBULIN RATIO 0.9 (0.8-2.0); ANION GAP 13.7 mmol/L (8-16); CALCIUM 8.5 mg/dL (8.4-10.2); CREATININE, SERUM 0.68 mg/dL (0.57-1.11); MAGNESIUM 1.6 MG/DL (1.3-2.1)
[2022-07-05 06:58] LABS: POTASSIUM 2.7 mmol/L (3.5-5.1)
[2022-07-05] MEDS ORDERED: POTASSIUM CHLORIDE 20 MEQ TAB CR PO ONE ×4 (10:45→19:00)
[2022-07-05] MEDS ORDERED: POTASSIUM CHLORIDE 20MEQ/100ML 100 ML IV ONE ×2 (11:30→13:30)
[2022-07-06 00:44] VITALS: BP 139/73; PULSE 81; RESP 16; TEMP 97.5; O2SAT 99
[2022-07-06 05:10] VITALS: BP 140/76; PULSE 81; RESP 19; TEMP 97.3; O2SAT 69
[2022-07-06 05:28] LABS: ANION GAP 9.7 mmol/L (8-16); CALCIUM 8.4 mg/dL (8.4-10.2); CREATININE, SERUM 0.62 mg/dL (0.57-1.11); POTASSIUM 3.7 mmol/L (3.5-5.1)
[2022-07-06] MEDS: SODIUM CHLORIDE 0.9% 1000ML 1,000 ML IV SCH (05:50)
[2022-07-06 08:30] VITALS: BP 138/75; PULSE 83; RESP 19; TEMP 98.1; O2SAT 99
[2022-07-06 09:03] VITALS: BP 138/75; PULSE 83; RESP 19; TEMP 98.1; O2SAT 99
[2022-07-06 10:33] VITALS: PULSE 83; RESP 18; O2SAT 96
[2022-07-06 11:55] VITALS: BP 134/73; PULSE 81; RESP 20; TEMP 97.4; O2SAT 99
[2022-07-06] MEDS ORDERED: ZITHROMAX250 MG PO (12:50)
== END 2022-07-06 13:55 | disposition home or self-care (01) | DRG 388 ==
LOC: ER 07:25 → ERHOLD 10:27 → MED/SURG 17:47 → OBSVTOIN 07-03 09:02
PROVIDERS: ADMIT Internal Medicine; ATTEND Internal Medicine
DX: K56.600 Partial intestinal obstruction, unspecified as to cause (principal); J69.0 Pneumonitis due to inhalation of food and vomit; J47.1 Bronchiectasis with (acute) exacerbation; K51.90 Ulcerative colitis, unspecified, without complications; E87.6 Hypokalemia; K57.90 Diverticulosis of intestine, part unspecified, without perforation or abscess without bleeding; I10 Essential (primary) hypertension; E78.5 Hyperlipidemia, unspecified; Z20.822 Contact with and (suspected) exposure to COVID-19
CPT/HCPCS: 36415; 36569; 51700; 71045; 71260; 74018; 74022; 74177; 80048; 80053; 81001; 83605; 83690; 83735; 85025; 85610; 85730; 87040; 93005; 94799; 99285; G0378; J1170; J1885; J2270; J2405; J2543; J3480; J7030; J7050; Q9967

== ENCOUNTER 2023-09-05 11:31 | Emergency (ER) | payer MEDICARE ==
[~2023-09-05] VITALS: Ht 312.4 cm; Wt 63.5 kg
[~2023-09-05 11:31] MED LIST changes: +AMLODIPINE BESYL5 MG PO; +AUGMENTIN 875MG PO; +BAYER BACK & B1 EACH PO; +COQ-10100 MG PO; +HYDROCODON-ACE1 EAC9; +IRBESARTAN150 MG PO; +LEXAPRO10 MG PO; +LIDODERM PATCH TOP; +OMEPRAZOLE20 MG PO; +PROAIR HFA INH; +PROVENTIL HFA6.7 GM INH; +QUESTRAN PACKET4 GM PO; +SUPER B-COMPL400 MCG; +TESSALON PERLES PO; +TRELEGY ELLIPT1 EACH; +VITAMIN C500 MG PO; +VITAMIN D350 MCG; +ZITHROMAX250 MG PO
[2023-09-05] MEDS: Morphine 4mg INJECTION 4 MG/ML INJ IV ONE ×3 (12:57→18:12)
[2023-09-05] MEDS ORDERED: IOPAMIDOL 370 MG/ML 100 ML INFUS..BTL INJ ONE (13:04)
[2023-09-05] MEDS: SODIUM CHLORIDE 0.9% 1000ML 1,000 ML IV ONE (15:31)
[2023-09-05] MEDS: ONDANSETRON HCL INJ 2MG/ML 2ML 2 MG/ML VIAL IV STA (15:31)
[2023-09-05 17:44] VITALS: PULSE 105; RESP 19; TEMP 97.4; O2SAT 97
== END 2023-09-05 18:18 | disposition short-term general hospital (02) ==
LOC: FSED 11:39
DX: K56.609 Unspecified intestinal obstruction, unspecified as to partial versus complete obstruction (principal); I10 Essential (primary) hypertension; J44.9 Chronic obstructive pulmonary disease, unspecified; Z87.19 Personal history of other diseases of the digestive system; Z79.899 Other long term (current) drug therapy
CPT/HCPCS: 74177; 80053; 80076; 81003; 85025; 99284; J2270; J2405; J7030; Q9967

== ENCOUNTER → 2023-11-21 | Outpatient (REF) | payer MEDICARE | LOC: CT 13:44 | PROVIDERS: ATTEND Internal Medicine Critical Care Medicine | DX: J18.1 Lobar pneumonia, unspecified organism (principal); K44.9 Diaphragmatic hernia without obstruction or gangrene | CPT/HCPCS: 71250 ==

== ENCOUNTER 2023-12-31 10:35 | Emergency (ER) | payer MEDICARE ==
[~2023-12-31] VITALS: Ht 312.4 cm; Wt 63.5 kg
[2023-12-31 10:50] VITALS: PULSE 79; RESP 18; TEMP 98.1; O2SAT 96
== END 2023-12-31 11:04 | disposition home or self-care (01) ==
LOC: FSED 10:40
DX: S50.12XA Contusion of left forearm, initial encounter (principal); I10 Essential (primary) hypertension; J44.9 Chronic obstructive pulmonary disease, unspecified; Z87.19 Personal history of other diseases of the digestive system
CPT/HCPCS: 99282

== ENCOUNTER 2024-03-25 12:52 | Outpatient (RCR) | payer MEDICARE | END 2024-03-28 | LOC: PT 12:52 | PROVIDERS: ATTEND Physician Assistant | DX: M16.11 Unilateral primary osteoarthritis, right hip (principal); M25.551 Pain in right hip; M25.651 Stiffness of right hip, not elsewhere classified; R26.89 Other abnormalities of gait and mobility; M62.81 Muscle weakness (generalized) ==

== ENCOUNTER 2024-04-01 07:37 | Outpatient (RCR) | payer MEDICARE | END 2024-04-25 | LOC: PT 07:37 | PROVIDERS: ATTEND Physician Assistant | DX: M16.11 Unilateral primary osteoarthritis, right hip (principal); M25.551 Pain in right hip ==

== ENCOUNTER 2024-09-08 11:11 | Inpatient (IN) | payer MEDICARE ==
[~2024-09-08] VITALS: Ht 160 cm; Wt 61.7 kg
[2024-09-08 11:20] VITALS: TEMP 98.6
[2024-09-08] MEDS: SODIUM CHLORIDE 0.9% 1000ML 1,000 ML IV ONE (11:54)
[2024-09-08] MEDS: CEFTRIAXONE 2 GM in SODIUM CHLORIDE 0.9% 100 ML IV ONE (11:54)
[2024-09-08 12:02] LABS: BASOPHILS % 0.3 % (0.0-1.0); EOSINOPHILS % 0.3 % (0.0-6.0); LYMPHOCYTES % 2.8 % (18.0-39.1); MONOCYTES % 3.2 % (4.4-11.3); NEUTROPHILS % 93.0 % (38.7-80.0); RED CELL DISTRIBUTION WIDTH 13.6 % (11.7-14.4)
[2024-09-08 12:26] LABS: CORONAVIRUS COVID-19 AG NEGATIVE (NEGATIVE)
[2024-09-08 13:11] LABS: EST GLOMERULAR FILTRATION RATE 55.0 ML/MIN (>=60)
[2024-09-08] MEDS ORDERED: ACETAMINOPHEN 325 MG TAB PO ONE (13:15)
[2024-09-08 13:20] LABS: LEUKOCYTE ESTERASE ,URINE TRACE (NEGATIVE)
[2024-09-08 13:21] LABS: PROTEIN,URINE DIPSTICK NEGATIVE (NEGATIVE); URINE UROBILINOGEN 0.2 mg/dL (0.2 - 1)
[2024-09-08] MEDS: HYDROCODONE/APAP 10MG-325MG TAB PO ONE (13:32)
[2024-09-08] MEDS ORDERED: SODIUM CHLORIDE FLUSH 10 ML SYR INJ PRN (13:45)
[2024-09-08] MEDS ORDERED: SODIUM CHLORIDE 0.9% 1000ML 2,000 ML ONE (14:52)
[2024-09-08 14:58] LABS: INR 1.19
[2024-09-08] MEDS: SODIUM CHLORIDE 0.9% IV SCH (15:02)
[2024-09-08 15:07] VITALS: PULSE 90; RESP 24
[2024-09-08] MEDS: ONDANSETRON HCL INJ 2MG/ML 2ML 2 MG/ML VIAL IV PRN (16:28)
[2024-09-08 20:00] VITALS: BP 160/78; PULSE 84; RESP 16; TEMP 97.7; O2SAT 98
[2024-09-08] MEDS ORDERED: ONDANSETRON HCL INJ 2MG/ML 2ML 2 MG/ML VIAL IV PRN (21:15)
[2024-09-08] MEDS ORDERED: HYDRALAZINE HCL 25 MG TAB PO PRN (21:15)
[2024-09-08] MEDS ORDERED: ALBUTEROL/IPRATROPIUM 3 ML NEB NEB PRN (21:15)
[2024-09-08] MEDS ORDERED: ACETAMINOPHEN 325 MG TAB PO PRN (21:15)
[2024-09-08 21:44] VITALS: BP 160/78; PULSE 84; RESP 16; TEMP 97.7; O2SAT 98
[2024-09-08] MEDS: ALBUTEROL/IPRATROPIUM 3 ML NEB NEB SCH (22:54)
[2024-09-08 22:55] VITALS: PULSE 76; RESP 20; O2SAT 92
[2024-09-09] VITALS (11 sets, daily range): BP systolic 99–142; BP diastolic 49–65; PULSE 72–102; RESP 16–20; TEMP 97.4–98; O2SAT 90–96
[2024-09-09] MEDS: HYDROCODONE/APAP 10MG-325MG TAB PO PRN (01:20)
[2024-09-09 05:58] LABS: BASOPHILS % 0.5 % (0.0-1.0); EOSINOPHILS % 2.4 % (0.0-6.0); LYMPHOCYTES % 8.0 % (18.0-39.1); MONOCYTES % 8.1 % (4.4-11.3); NEUTROPHILS % 80.7 % (38.7-80.0); RED CELL DISTRIBUTION WIDTH 13.7 % (11.7-14.4)
[2024-09-09 06:33] LABS: EST GLOMERULAR FILTRATION RATE 75.0 ML/MIN (>=60)
[2024-09-09] MEDS: PANTOPRAZOLE SOD 40 MG TABEC PO SCH (07:57)
[2024-09-09] MEDS: METHYLPREDNISOLONE SOD SUCC 125 MG/2ML VIAL IV ONE (14:45)
[2024-09-10] VITALS (10 sets, daily range): BP systolic 113–132; BP diastolic 54–75; PULSE 66–97; RESP 16–18; TEMP 97.5–98.4; O2SAT 93–100
[2024-09-10] MEDS: BENZONATATE 100 MG CAP PO PRN (09:56)
[2024-09-10] MEDS: SODIUM CHLORIDE 0.9% 250ML 250 ML ONE (10:03)
[2024-09-10] MEDS: METHYLPREDNISOLONE SOD SUCC 40 MG/ML VIAL 1ML IV ONE (11:17)
[2024-09-11 01:09] VITALS: PULSE 71; RESP 16; O2SAT 94
[2024-09-11 03:18] VITALS: BP 118/60; PULSE 94; RESP 18; TEMP 98.5; O2SAT 95
[2024-09-11 07:01] VITALS: PULSE 78; RESP 20; O2SAT 95
[2024-09-11 08:00] VITALS: BP 118/60; PULSE 75; RESP 20; TEMP 98.5; O2SAT 96
[2024-09-11 09:35] VITALS: BP 127/70; PULSE 94; RESP 20; TEMP 97.9; O2SAT 96
[2024-09-11] MEDS ORDERED: LEVOFLOXACIN250 MG PO (12:02)
[2024-09-11] MEDS ORDERED: duoneb NEB (12:02)
[2024-09-11] MEDS ORDERED: TESSALON PEARLS PO (12:03)
[2024-09-11 12:50] VITALS: BP 123/69; PULSE 69; RESP 18; TEMP 98.4; O2SAT 96
== END 2024-09-11 13:10 | disposition home or self-care (01) | DRG 871 ==
LOC: ER 11:20 → ERHOLD 13:57 → INTOOBSV 13:57 → MED/SURG3 19:44 → OBSVTOIN 09-09 11:36
PROVIDERS: ADMIT Internal Medicine; ATTEND Internal Medicine
DX: A41.9 Sepsis, unspecified organism (principal); J18.9 Pneumonia, unspecified organism; E87.20 Acidosis, unspecified; J44.1 Chronic obstructive pulmonary disease with (acute) exacerbation; K51.90 Ulcerative colitis, unspecified, without complications; J44.9 Chronic obstructive pulmonary disease, unspecified; R65.20 Severe sepsis without septic shock; I10 Essential (primary) hypertension; E78.5 Hyperlipidemia, unspecified; M79.10 Myalgia, unspecified site; J43.9 Emphysema, unspecified; K59.00 Constipation, unspecified; R11.0 Nausea; M19.90 Unspecified osteoarthritis, unspecified site; R09.02 Hypoxemia; J06.9 Acute upper respiratory infection, unspecified; J98.4 Other disorders of lung; R82.71 Bacteriuria; K21.9 Gastro-esophageal reflux disease without esophagitis; Z87.440 Personal history of urinary (tract) infections; Z79.82 Long term (current) use of aspirin; Z79.51 Long term (current) use of inhaled steroids; Z87.891 Personal history of nicotine dependence
CPT/HCPCS: 36415; 71046; 71250; 80053; 81001; 83605; 85025; 85610; 85730; 87040; 87086; 87186; 93005; 94640; 94799; 99284; G0378; J0696; J2405; J2470; J2919; J7030; J7050

== ENCOUNTER 2024-12-21 21:31 | Emergency (ER) | payer MEDICARE ==
[~2024-12-21 21:31] MED LIST changes: +LEVOFLOXACIN250 MG PO; +TESSALON PEARLS PO; +duoneb NEB
== END 2024-12-21 21:41 | disposition left against medical advice (07) ==
LOC: ER 21:41
DX: R10.9 Unspecified abdominal pain (principal)